=== PATIENT | female | born 1975 | race Caucasian/White ===

== ENCOUNTER 2018-09-16 19:43 | Emergency (ER) | payer OTHER ==
[~2018-09-16] VITALS: Ht 165.1 cm; Wt 95.3 kg
[~2018-09-16 19:43] MED LIST: ACETAMINOPHEN-1 EAC1 PO; BETAPACE80 MG PO; IBUPROFEN 200200 M1 PO; LIPITOR20 MG PO; NICOTINE TRANSD21 M1 TRANSDERM; NOHOMEMEDICATIONS; PENICILLIN V P500 MG PO; PREDNISONE 20 M20 MG PO
[2018-09-16 20:12] LABS: ABSOLUTE BASOPHILS 0.1 thou/uL (0.0-0.2); ABSOLUTE EOSINOPHILS 0.2 thou/uL (0.0-0.7); ABSOLUTE LYMPHOCYTES 3.6 thou/uL (0.8-5.3); ABSOLUTE MONOCYTES 0.5 thou/uL (0.0-1.2); BASOPHILS 1.2 %; EOSINOPHILS 2.5 %; HEMATOCRIT 39.1 % (37.0-47.0); HEMOGLOBIN 13.1 gm/dL (12.0-15.0); LYMPHOCYTES 38.2 %; MCH 29.4 pg (26.0-34.0); MCHC 33.4 g/dL (28.0-37.0); MCV 87.8 fL (80.0-100.0); MONOCYTES 5.7 %; MPV 8.1 fl. (7.2-11.1); NUCLEATED RBCS 0 /100WBC; PLATELET COUNT* 342 thou/uL (150-400); POLYS 52.4 %; RBC 4.45 mil/uL (4.20-5.00); RDW-CV 13.3 % (10.5-14.5); WBC 9.5 thou/uL (4.0-11.0)
[2018-09-16 20:20] LABS: ANION GAP 7 mmol/L (7-16); BUN 12 mg/dL (7-18); CALCIUM 8.7 mg/dL (8.5-10.1); CHLORIDE 105 mmol/L (98-107); CO2 28 mmol/L (21-32); CREATININE 0.8 mg/dL (0.6-1.3); GLUCOSE 108 mg/dL (70-99); POTASSIUM 3.8 mmol/L (3.5-5.1); SODIUM 140 mmol/L (136-145)
[2018-09-16 20:24] LABS: INR 0.9; PROTIME 9.7 Seconds (9.20-11.50)
[2018-09-16 20:35] LABS: ALBUMIN 3.4 g/dL (3.4-5.0); ALKALINE PHOSPHATASE 65 U/L (46-116); LIPASE 100 U/L (73-393); NT-PRO BRAIN NAT PEPTIDE 68 pg/mL (<300); SGOT 50 U/L (15-37); SGPT 94 U/L (30-65); TOTAL BILIRUBIN 0.1 mg/dL (<0.1-1.0); TOTAL PROTEIN 7.2 g/dL (6.4-8.2); TROPONIN-I LEVEL <0.06 ng/mL (<0.06)
[2018-09-16] MEDS ORDERED: NEXIUM20 MG PO (22:11)
[2018-09-16] MEDS ORDERED: CARAFATE 1 GM TA1 GM PO (22:11)
[2018-09-16] MEDS ORDERED: TRAMADOL 50 MG50 MG PO (22:11)
[2018-09-16 22:20] VITALS: BP 144/83
--- NOTE | 2018-09-17 10:34 | EKG ---
[place] [address] ELECTROCARDIOGRAM REPORT Name: NELLY ALONZO [id number] Admission: 09/16/18 Attend Phys: Discharge: 09/16/18 Date of : 73 Report #: [id number] THIS REPORT FOR: //name// [facility] ED Test Date: 2018-09-16 Test Time: 19:49:21 Pat Name: NELLY ALONZO Department: Room: Gender: F Quality Tech: ANNY : 1975 Requested By: Fany Matthew Order Number: [id number] Vanessa MD: Eduardo Collado Measurements Intervals [place] Rate: 70 P: 30 IA: 144 QRS: 32 QRSD: 82 T: 73 QT: 405 QTc: 437 Interpretive Statements Sinus rhythm Baseline wander in lead(s) V2,V4,V5 Compared to ECG 02/03/2015 07:38:44 No significant changes Electronically Signed On 09-17-2018 10:33:57 CDT by Eduardo Collado [email or web address] <ELECTRONICALLY SIGNED> By: Eduardo Collado MD, [facility] 09/17/18 1033 48 48 Eduardo Collado MD, FAC /EPI
--- NOTE | 2018-09-17 10:34 | EKG ---
[place] [address] ELECTROCARDIOGRAM REPORT Name: NELLY ALONZO [facility] [id number] Admission: 09/16/18 Attend Phys: Discharge: 09/16/18 Date of : 73 Report #: [id number] THIS REPORT FOR: //name// [facility] ED Test Date: 2018-09-16 Test Time: 20:12:48 Pat Name: NELLY ALONZO Department: Room: Gender: F Marker Machine: ANNY : 1975 Requested By: Fany Matthew Order Number: [id number] MD: Eduardo Collado Measurements Intervals [place] Rate: 65 P: 27 ND: 139 QRS: 31 QRSD: 86 T: 77 QT: 422 QTc: 439 Interpretive Statements Sinus rhythm ST elev, probable normal early repol pattern Compared to ECG 02/03/2015 07:38:44 ST (T wave) deviation now present Electronically Signed On 09-17-2018 10:34:09 CDT by Eduardo Collado [email or web address] <ELECTRONICALLY SIGNED> By: Eduardo Collado MD, [facility] 09/17/18 1034 11 11 Eduardo Collado MD, [facility] /EPI
== END 2018-09-16 22:20 | disposition home or self-care (01) ==
LOC: M.ERS 19:43
PROVIDERS: Emergency Medicine
DX: K21.9 Gastro-esophageal reflux disease without esophagitis (principal); E78.00 Pure hypercholesterolemia, unspecified; I48.91 Unspecified atrial fibrillation; M06.9 Rheumatoid arthritis, unspecified

== ENCOUNTER 2021-02-23 21:13 | Emergency (ER) | payer OTHER ==
[~2021-02-23] VITALS: Ht 165.1 cm; Wt 90.7 kg
[~2021-02-23 21:13] MED LIST changes: +CARAFATE 1 GM TA1 GM PO; +NEXIUM20 MG PO; +TRAMADOL 50 MG50 MG PO
[2021-02-24 01:27] LABS: ABSOLUTE EOSINOPHILS 0.2 thou/uL (0.0-0.7); ABSOLUTE LYMPHOCYTES 1.9 thou/uL (0.8-5.3); ABSOLUTE MONOCYTES 0.7 thou/uL (0.0-1.2); ABSOLUTE NEUTROPHILS 6.3 thou/uL (1.6-8.1); BASOPHILS 0.5 %; EOSINOPHILS 1.7 %; HEMATOCRIT 40.3 % (37.0-47.0); HEMOGLOBIN 13.5 gm/dL (12.0-15.0); LYMPHOCYTES 21.1 %; MCH 28.6 pg (26.0-34.0); MCHC 33.6 g/dL (28.0-37.0); MCV 85.1 fL (80.0-100.0); MONOCYTES 7.6 %; MPV 7.4 fl. (7.2-11.1); NUCLEATED RBCS 0 /100WBC; PLATELET COUNT* 373 thou/uL (150-400); POLYS 69.1 %; RBC 4.74 mil/uL (4.20-5.00); RDW-CV 14.4 % (10.5-14.5); WBC 9.1 thou/uL (4.0-11.0)
[2021-02-24 01:28] LABS: URINE BILIRUBIN NEGATIVE (Negative); URINE BLOOD NEGATIVE (Negative); URINE CLARITY CLEAR; URINE COLOR YELLOW; URINE GLUCOSE-RANDOM NEGATIVE (Negative); URINE KETONES NEGATIVE (Negative); URINE LEUKOCYTES-REFLEX NEGATIVE (Negative); URINE NITRITE-REFLEX NEGATIVE (Negative); URINE PROTEIN NEGATIVE (Negative); URINE UROBILINOGEN 0.2 E.U./dl (0.2-1.0)
[2021-02-24 01:36] LABS: AMP/METHAMP Negative (Negative); BARBITURATES Negative (Negative); BENZODIAZEPINES Negative (Negative); COCAINE Negative (Negative); METHADONE Negative (Negative); OPIATES Negative (Negative); PCP Negative (Negative); THC Negative (Negative)
[2021-02-24 01:40] LABS: CALCIUM 9.4 mg/dL (8.5-10.1); CREATININE 0.8 mg/dL (0.6-1.3); POTASSIUM 4.2 mmol/L (3.5-5.1)
[2021-02-24 01:45] LABS: ALBUMIN 4.3 g/dL (3.4-5.0); TOTAL BILIRUBIN 0.4 mg/dL (<0.1-1.0); TOTAL PROTEIN 8.2 g/dL (6.4-8.2)
[2021-02-24] MEDS ORDERED: CARAFATE 1 GM TA1 GM PO (05:04)
[2021-02-24] MEDS ORDERED: HYDROCODON-ACE1 EAC7 PO (05:04)
[2021-02-24] MEDS ORDERED: OMEPRAZOLE40 MG PO (05:04)
[2021-02-24] MEDS ORDERED: ZOFRAN ODT4 MG PO (05:04)
[2021-02-24 05:27] VITALS: BP 117/79
--- NOTE | 2021-02-24 09:55 | EKG ---
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 : 1975 Requested By: Indu Barrientos Order Number: [id number] MD: Norm Briones Measurements Intervals [place] Rate: 64 P: 42 TX: 137 QRS: 44 QRSD: 92 T: 77 QT: 409 QTc: 422 Interpretive Statements Sinus rhythm Probable left atrial enlargement Low voltage, precordial leads ST elevation, consider inferior injury Compared to ECG 09/16/2018 20:12:48 Low QRS voltage now present ST (T wave) deviation still present Electronically Signed On 02-24-2021 9:54:51 CDT by Norm Briones [email or web address] <ELECTRONICALLY SIGNED> By: Norm Briones MD, FACC 02/24/21 0954 12 12 Norm Briones MD, FACC /EPI
--- NOTE | 2021-02-24 09:58 | EKG ---
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: [place] : 1975 Requested By: Indu Barrientos Order Number: [id number] MD: Norm Briones Measurements Intervals [place] Rate: 57 P: 39 WI: 134 QRS: 44 QRSD: 108 T: 79 QT: 440 QTc: 429 Interpretive Statements Sinus rhythm Inferior infarct, old Lateral leads are also involved Compared to ECG 02/23/2021 22:13:30 no change Electronically Signed On 02-24-2021 9:58:05 CDT by Norm Briones [email or web address] <ELECTRONICALLY SIGNED> By: Norm Briones MD, [facility] 02/24/21 0958 9 Norm Briones MD, [facility] /EPI
== END 2021-02-24 05:29 | disposition home or self-care (01) ==
LOC: M.ERS 21:13
PROVIDERS: Personal Emergency Response Attendant
DX: K29.70 Gastritis, unspecified, without bleeding (principal); E78.00 Pure hypercholesterolemia, unspecified; I48.91 Unspecified atrial fibrillation; Z98.51 Tubal ligation status; Z91.048 Other nonmedicinal substance allergy status

== ENCOUNTER 2021-03-17 19:28 | Emergency (ER) | payer OTHER ==
[~2021-03-17] VITALS: Ht 165.1 cm; Wt 92.1 kg
[~2021-03-17 19:28] MED LIST changes: +HYDROCODON-ACE1 EAC7 PO; +OMEPRAZOLE40 MG PO; +ZOFRAN ODT4 MG PO
[2021-03-17 20:11] LABS: ABSOLUTE BASOPHILS 0.1 thou/uL (0.0-0.2); ABSOLUTE EOSINOPHILS 0.2 thou/uL (0.0-0.7); ABSOLUTE LYMPHOCYTES 2.8 thou/uL (0.8-5.3); ABSOLUTE MONOCYTES 0.5 thou/uL (0.0-1.2); BASOPHILS 0.8 %; EOSINOPHILS 2.7 %; HEMATOCRIT 35.9 % (37.0-47.0); HEMOGLOBIN 12.1 gm/dL (12.0-15.0); LYMPHOCYTES 37.4 %; MCH 28.2 pg (26.0-34.0); MCHC 33.6 g/dL (28.0-37.0); MCV 83.9 fL (80.0-100.0); MONOCYTES 6.1 %; MPV 7.5 fl. (7.2-11.1); NUCLEATED RBCS 0 /100WBC; PLATELET COUNT* 333 thou/uL (150-400); RBC 4.28 mil/uL (4.20-5.00); RDW-CV 13.9 % (10.5-14.5); WBC 7.6 thou/uL (4.0-11.0)
[2021-03-17 20:20] LABS: URINE BILIRUBIN NEGATIVE (Negative); URINE BLOOD NEGATIVE (Negative); URINE CLARITY CLEAR; URINE COLOR YELLOW; URINE GLUCOSE-RANDOM NEGATIVE (Negative); URINE KETONES NEGATIVE (Negative); URINE LEUKOCYTES-REFLEX NEGATIVE (Negative); URINE NITRITE-REFLEX NEGATIVE (Negative); URINE PROTEIN NEGATIVE (Negative); URINE SPECIFIC GRAVITY 1.015 (1.005-1.030); URINE UROBILINOGEN 0.2 E.U./dl (0.2-1.0)
[2021-03-17 20:22] LABS: CALCIUM 8.4 mg/dL (8.5-10.1); CREATININE 0.7 mg/dL (0.6-1.3); POTASSIUM 3.7 mmol/L (3.5-5.1)
[2021-03-17 20:24] LABS: ALBUMIN 3.5 g/dL (3.4-5.0); MAGNESIUM 1.9 mg/dL (1.8-2.4); TOTAL BILIRUBIN 0.2 mg/dL (<0.1-1.0); TOTAL PROTEIN 6.9 g/dL (6.4-8.2)
[2021-03-17 20:46] VITALS: BP 138/56
--- NOTE | 2021-03-18 10:15 | EKG ---
[place] [address] ELECTROCARDIOGRAM REPORT Name: NELLY ALONZO Room: [facility]#: [id number] Admission: 03/17/21 Attend Phys: Discharge: 03/17/21 Date of : 73 Date of Service: 03/17/211940 Report #: [id number] THIS REPORT FOR: //name// 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 03/18/21 1015 40 40 Norm Briones MD, [facility] /EPI
== END 2021-03-17 20:47 | disposition home or self-care (01) ==
LOC: M.ERS 19:28
PROVIDERS: Emergency Medicine
DX: I49.8 Other specified cardiac arrhythmias (principal); R42 Dizziness and giddiness; R00.2 Palpitations; R53.1 Weakness; R11.0 Nausea; M06.9 Rheumatoid arthritis, unspecified; E78.00 Pure hypercholesterolemia, unspecified; I48.91 Unspecified atrial fibrillation; Z98.51 Tubal ligation status; Z91.048 Other nonmedicinal substance allergy status